=== PATIENT | male | born 1990 | race Hispanic/Latino ===

== ENCOUNTER 2018-06-04 06:17 | Emergency (ER) | payer BC, OTHER ==
[2018-06-04 06:32] LABS: BASOPHILS % (AUTO) 0.8 % (0.0-5.0); EOSINOPHILS % (AUTO) 0.6 % (0.0-8.0); HEMATOCRIT 44.8 % (42-54); LYMPHOCYTES % (AUTO) 34.8 % (21.0-51.0); MEAN CORPUSCULAR HGB CONC 34.1 g/dL (32.0-36.0); NEUTROPHILS % (AUTO) 57.8 % (40.0-77.0); PLATELET COUNT (AUTO) 263 K/uL (130-400); RED BLOOD CELL COUNT(AUTO) 4.92 MIL/uL (4.50-6.20); RED CELL DISTRIBUTION WIDTH 13.5 % (11.0-15.5); WHITE BLOOD COUNT (AUTO) 11.6 K/uL (4.8-10.8)
[2018-06-04 06:46] LABS: AMPHET/METH SCREEN,URINE NEGATIVE (NEGATIVE); BARBITURATE SCREEN, URINE NEGATIVE (NEGATIVE); BENZODIAZEPINES SCREEN,URINE NEGATIVE (NEGATIVE); CANNABINOID SCREEN,URINE POSITIVE (NEGATIVE); COCAINE SCREEN,URINE POSITIVE (NEGATIVE); OPIATE SCREEN,URINE NEGATIVE (NEGATIVE); PHENCYCLIDINE SCREEN,URINE NEGATIVE (NEGATIVE)
[2018-06-04 06:56] LABS: CARBON DIOXIDE 23 mmol/L (21-32); CHLORIDE 101 mmol/L (101-111); CREATININE 1.2 mg/dL (0.5-1.5); GLOMERULAR FILTR. RATE CALC 77 mL/min (>60); GLUCOSE,RANDOM 147 mg/dL (70-105); POTASSIUM 3.3 mmol/L (3.5-5.1); SODIUM SERUM 141 mmol/L (136-145); UREA NITROGEN, BLOOD 9 mg/dL (7-18)
[2018-06-04 06:57] LABS: ABG OXYGEN SATURATION 68.5 % (95.0-99.0); BASE EXCESS,VENOUS BLOOD GAS -6.6 (-2.0-3.0); HCO3,VENOUS BLOOD GAS 19.9 (21.0-28.0); PCO2,VENOUS BLOOD GAS 43 (35-48); PH,VENOUS BLOOD GAS 7.282 (7.350-7.450)
[2018-06-04 07:03] LABS: ALANINE AMINOTRANSFERASE 42 U/L (12-78); ALBUMIN 4.7 g/dL (3.5-5.0); ASPARTATE AMINOTRANSFERASE 36 U/L (10-37); BILIRUBIN,TOTAL 0.3 mg/dL (0.2-1.0); TOTAL PROTEIN, SERUM 8.9 g/dL (6.0-8.3)
[2018-06-04 07:06] LABS: APPEARANCE,URINE Cloudy (CLEAR); BILIRUBIN,URINE Negative (NEGATIVE); COLOR,URINE Yellow (YELLOW); GLUCOSE, URINE (UA) Negative (NEGATIVE); KETONES,URINE Negative (NEGATIVE); LEUKOCYTE ESTERASE ,URINE Negative (NEGATIVE); NITRATE,URINE Negative (NEGATIVE); OCCULT BLOOD,URINE Negative (NEGATIVE); PROTEIN,URINE POS 1+ (NEGATIVE); UROBILINOGEN,URINE 0.2 mg/dL (0.2-1.0)
[2018-06-04 07:35] LABS: WBC,URINE None Seen /HPF (0-1)
[2018-06-04 07:36] LABS: AMORPHOUS SEDIMENT,UR Few /LPF (None Seen); BACTERIA,URINE Few /HPF (None Seen); RBC,URINE 0-1 /HPF (0-1); SQUAMOUS EPITHELIAL CELL,UR 0-2 /HPF (0-2)
[2018-06-04 07:39] LABS: SALICYLATE < 2.8 mg/dL (2.8-20.0)
[2018-06-04 07:40] LABS: ALCOHOL, BLOOD 246 mg/dL (0-10)
[2018-06-04 07:42] LABS: ACETAMINOPHEN < 1 mcg/mL (10-29)
[2018-06-04] MEDS ORDERED: SODIUM CHLORIDE 0.9% 1000ML 1,000 ML IV ONE (08:09)
== END 2018-06-04 09:33 | disposition home or self-care (01) ==
LOC: EDH 06:17
DX: F10.129 Alcohol abuse with intoxication, unspecified (principal); F14.10 Cocaine abuse, uncomplicated; F12.90 Cannabis use, unspecified, uncomplicated
CPT/HCPCS: 36415; 36600; 80053; 80305; 81001; 82803; 85025; 93005; 96360; 96361; 99285; G0480 ×2; G0481; J7030

== ENCOUNTER 2019-08-23 15:22 | Emergency (ER) | payer BC, OTHER ==
[2019-08-23] MEDS ORDERED: DEXAMETHASONE SOD PHOSPHATE 10MG/ML 1ML VIAL ONE (16:25)
[2019-08-23] MEDS ORDERED: ORPHENADRINE CITRATE 30 MG/ML ML ONE (16:25)
[2019-08-23] MEDS ORDERED: IBUPROFEN 400 MG TABLET ONE (16:26)
[2019-08-23] MEDS ORDERED: IBUPROFEN 200 MG TAB ONE (16:26)
== END 2019-08-23 17:03 | disposition home or self-care (01) ==
LOC: EDH 15:22
DX: M62.830 Muscle spasm of back (principal); M54.5 Low back pain; Z72.0 Tobacco use; X50.0XXA Overexertion from strenuous movement or load, initial encounter; Y93.89 Activity, other specified; Y92.89 Other specified places as the place of occurrence of the external cause; Y99.8 Other external cause status
CPT/HCPCS: 72072; 96372 ×2; 99284; J1100; J2360

== ENCOUNTER 2020-10-05 04:12 | Emergency (ER) | payer SELFPAY ==
[~2020-10-05] VITALS: Ht 162.6 cm; Wt 54.4 kg
[2020-10-05] MEDS ORDERED: LACTATED RINGERS 1000ML 1,000 ML IV SCH (04:30)
[2020-10-05] MEDS ORDERED: ONDANSETRON HCL 4 MG/2 ML VIAL IVP SCH (04:30)
[2020-10-05] MEDS ORDERED: KETOROLAC 30MG VIAL (30MG/ML) IV SCH (04:30)
[2020-10-05 05:01] LABS: BASOPHILS % (AUTO) 0.9 % (0.0-5.0); EOSINOPHILS % (AUTO) 3.8 % (0.0-8.0); HEMATOCRIT 41.2 % (42-54); LYMPHOCYTES % (AUTO) 29.7 % (21.0-51.0); MEAN CORPUSCULAR HEMOGLOBIN 30.7 pg (27.0-33.0); MEAN CORPUSCULAR HGB CONC 33.5 g/dL (32.0-36.0); MEAN CORPUSCULAR VOLUME 91.8 fL (79-99); MONOCYTES % (AUTO) 7.5 % (3.0-13.0); NEUTROPHILS % (AUTO) 57.2 % (40.0-77.0); PLATELET COUNT (AUTO) 240 K/uL (130-400); RED BLOOD CELL COUNT(AUTO) 4.49 MIL/uL (4.50-6.20); RED CELL DISTRIBUTION WIDTH 12.5 % (11.0-15.5); WHITE BLOOD COUNT (AUTO) 9.3 K/uL (4.8-10.8)
[2020-10-05 05:10] LABS: POTASSIUM 3.6 mmol/L (3.5-5.1)
[2020-10-05 05:14] LABS: ALBUMIN 4.1 g/dL (3.5-5.0); BILIRUBIN,TOTAL 0.2 mg/dL (0.2-1.0); TOTAL PROTEIN, SERUM 8.3 g/dL (6.0-8.3)
[2020-10-05 05:56] VITALS: BP 117/70
[2020-10-05] MEDS ORDERED: MORPHINE 2 MG SYG (2MG/1ML) IVP SCH (06:15)
[2020-10-05] MEDS ORDERED: MORPHINE 2 MG SYG (2MG/1ML) ONE (06:29)
[2020-10-05] MEDS ORDERED: CLINDAMYCIN 900 MG/D5% WATER 50 ML IV ONE (06:29)
[2020-10-05] MEDS ORDERED: MELO7.5T12 PO (06:39)
[2020-10-05] MEDS ORDERED: CLIN300C10 PO (06:39)
[2020-10-05] MEDS ORDERED: CYCL10 PO (06:39)
[2020-10-05] MEDS ORDERED: CLINDAMYCIN 900 MG/D5% WATER 50 ML IV SCH ×2 (06:56→12:00)
[2020-10-05 06:57] VITALS: BP 111/69
== END 2020-10-05 06:59 | disposition home or self-care (01) ==
LOC: EDH 04:31
DX: S02.2XXA Fracture of nasal bones, initial encounter for closed fracture (principal); F10.10 Alcohol abuse, uncomplicated; Z79.899 Other long term (current) drug therapy; W18.09XA Striking against other object with subsequent fall, initial encounter; Y93.89 Activity, other specified; Y92.89 Other specified places as the place of occurrence of the external cause; Y99.8 Other external cause status
CPT/HCPCS: 36415; 70486; 80053; 85025; 96361; 96365; 96375; 99284; J1885; J2405; J3490; J7120

== ENCOUNTER 2020-10-17 02:56 | Emergency (ER) | payer SELFPAY ==
[~2020-10-17] VITALS: Ht 162.6 cm; Wt 64.4 kg
[~2020-10-17 02:56] MED LIST: CLIN-141 PO; CYCL10TA16 PO; MELO7.5T12 PO
[2020-10-17 03:20] VITALS: BP 137/91
[2020-10-17 03:22] VITALS: BP 142/92
[2020-10-17 03:43] LABS: APPEARANCE,URINE Clear (CLEAR); BILIRUBIN,URINE Negative (NEGATIVE); COLOR,URINE Yellow (YELLOW); GLUCOSE, URINE (UA) Negative (NEGATIVE); KETONES,URINE 15 mg/dL (NEGATIVE); LEUKOCYTE ESTERASE ,URINE Negative (NEGATIVE); NITRATE,URINE Negative (NEGATIVE); OCCULT BLOOD,URINE Negative (NEGATIVE); PROTEIN,URINE Negative (NEGATIVE)
[2020-10-17 03:47] LABS: BASOPHILS % (AUTO) 0.9 % (0.0-5.0); EOSINOPHILS % (AUTO) 3.1 % (0.0-8.0); HEMATOCRIT 42.3 % (42-54); LYMPHOCYTES % (AUTO) 23.6 % (21.0-51.0); MEAN CORPUSCULAR HEMOGLOBIN 30.8 pg (27.0-33.0); MEAN CORPUSCULAR HGB CONC 33.6 g/dL (32.0-36.0); MEAN CORPUSCULAR VOLUME 91.8 fL (79-99); MONOCYTES % (AUTO) 6.4 % (3.0-13.0); NEUTROPHILS % (AUTO) 65.6 % (40.0-77.0); PLATELET COUNT (AUTO) 261 K/uL (130-400); RED BLOOD CELL COUNT(AUTO) 4.61 MIL/uL (4.50-6.20); RED CELL DISTRIBUTION WIDTH 12.6 % (11.0-15.5); WHITE BLOOD COUNT (AUTO) 10.4 K/uL (4.8-10.8)
[2020-10-17 03:57] LABS: POTASSIUM 3.2 mmol/L (3.5-5.1)
[2020-10-17 04:02] LABS: ALBUMIN 4.6 g/dL (3.5-5.0); BILIRUBIN,TOTAL 0.5 mg/dL (0.2-1.0)
[2020-10-17 04:38] VITALS: BP_SYST 108; BP_SYST 122; BP_DIAS 65; BP_DIAS 73
[2020-10-17] MEDS ORDERED: IOHEXOL-350 75 ML VIAL IV ONE (04:50)
[2020-10-17] MEDS ORDERED: POTASSIUM CHLORIDE 10% ELIXIR 20 MEQ/15 ML UDCUP PO SCH (05:30)
[2020-10-17 07:10] VITALS: BP 126/70
[2020-10-17] MEDS ORDERED: SIME120L MC (07:20)
== END 2020-10-17 07:51 | disposition home or self-care (01) ==
LOC: EDH 03:00
DX: E87.6 Hypokalemia (principal); R14.0 Abdominal distension (gaseous); G89.29 Other chronic pain; M54.5 Low back pain; Z79.899 Other long term (current) drug therapy
CPT/HCPCS: 36415; 74177; 80053; 81003; 83690; 85025; 87880; 99285; Q9967

== ENCOUNTER 2021-02-14 02:31 | Emergency (ER) | payer SELFPAY ==
[~2021-02-14] VITALS: Ht 162.6 cm; Wt 61.2 kg
[~2021-02-14 02:31] MED LIST changes: +SIME120L MC
[2021-02-14 03:00] LABS: BASOPHILS % (AUTO) 0.9 % (0.0-5.0); EOSINOPHILS % (AUTO) 1.9 % (0.0-8.0); MEAN CORPUSCULAR HGB CONC 33.8 g/dL (32.0-36.0); MEAN CORPUSCULAR VOLUME 94.6 fL (79-99); MONOCYTES % (AUTO) 6.3 % (3.0-13.0); NEUTROPHILS % (AUTO) 66.2 % (40.0-77.0); PLATELET COUNT (AUTO) 265 K/uL (130-400); RED BLOOD CELL COUNT(AUTO) 4.44 MIL/uL (4.50-6.20); WHITE BLOOD COUNT (AUTO) 9.2 K/uL (4.8-10.8)
[2021-02-14] MEDS ORDERED: 0.9%NACL 1000ML 1,000 ML IV ONE (03:00)
[2021-02-14] MEDS ORDERED: LORAZEPAM 2 MG/ML 1 ML VIAL IVP ONE (03:00)
[2021-02-14] MEDS ORDERED: LORAZEPAM 2 MG/ML 1 ML VIAL ONE (03:02)
[2021-02-14 03:09] LABS: CARBON DIOXIDE 25 mmol/L (21-32); CHLORIDE 102 mmol/L (101-111); GLOMERULAR FILTR. RATE CALC 93 mL/min (>60); GLUCOSE,RANDOM 122 mg/dL (70-105); POTASSIUM 3.3 mmol/L (3.5-5.1); SODIUM SERUM 139 mmol/L (136-145); UREA NITROGEN, BLOOD 12 mg/dL (7-18)
[2021-02-14 03:14] LABS: ALANINE AMINOTRANSFERASE 26 U/L (12-78); ALBUMIN 4.6 g/dL (3.5-5.0); ALCOHOL, BLOOD < 3 mg/dL (0-10); ASPARTATE AMINOTRANSFERASE 20 U/L (10-37); BILIRUBIN,TOTAL 0.4 mg/dL (0.2-1.0); CREATINE KINASE, TOTAL 154 U/L (21-232); TOTAL PROTEIN, SERUM 8.6 g/dL (6.0-8.3)
[2021-02-14 04:24] LABS: AMPHET/METH SCREEN,URINE NEGATIVE (NEGATIVE); BARBITURATE SCREEN, URINE NEGATIVE (NEGATIVE); BENZODIAZEPINES SCREEN,URINE NEGATIVE (NEGATIVE); CANNABINOID SCREEN,URINE POSITIVE (NEGATIVE); COCAINE SCREEN,URINE POSITIVE (NEGATIVE); OPIATE SCREEN,URINE NEGATIVE (NEGATIVE); PHENCYCLIDINE SCREEN,URINE NEGATIVE (NEGATIVE)
[2021-02-14 04:47] VITALS: BP 119/77
== END 2021-02-14 04:57 | disposition home or self-care (01) ==
LOC: EDH 02:31
DX: R07.89 Other chest pain (principal); R42 Dizziness and giddiness; T40.5X5A Adverse effect of cocaine, initial encounter; Z79.1 Long term (current) use of non-steroidal anti-inflammatories (NSAID); Z79.899 Other long term (current) drug therapy; Y92.89 Other specified places as the place of occurrence of the external cause
CPT/HCPCS: 36415; 80053; 80305; 82550; 84484; 85025; 93005; 96361; 96374; 99284; J2060; J7030

== ENCOUNTER 2023-08-26 05:44 | Emergency (ER) | payer BC ==
[~2023-08-26] VITALS: Ht 162.6 cm; Wt 59.4 kg
[2023-08-26 05:44] VITALS: BP 136/100; PULSE 92; RESP 17
[2023-08-26] MEDS ORDERED: IBUP-1493 PO (06:18)
[2023-08-26] MEDS ORDERED: AMOX1TAB16 PO (06:18)
[2023-08-26] MEDS: KETOROLAC 60 MG VIAL (30MG/ML) IM ONE (06:33)
== END 2023-08-26 06:50 | disposition home or self-care (01) ==
LOC: EDH 05:44
DX: K04.7 Periapical abscess without sinus (principal); F17.210 Nicotine dependence, cigarettes, uncomplicated
CPT/HCPCS: 99284; 96372; J1885